=== PATIENT | male | born 1980 | race Native Hawaiian/Other Pacific Islander ===

== ENCOUNTER 2018-10-13 15:01 | Emergency (ER) | payer OTHER ==
[2018-10-13 15:12] VITALS: BP 115/72; PULSE 85; RESP 20; O2SAT 99
[2018-10-13] MEDS ORDERED: Dexamethasone 10 MG in Sodium Chloride 0.9% 50 ML IV ONE (16:13)
[2018-10-13] MEDS ORDERED: Sodium Chloride 0.9% 1,000 ML IV SCH (16:15)
--- NOTE | 2018-10-13 16:49 | ED PDOC ---
HPI: CCC, URI, Sore Throat Time Seen by Provider: 10/13/18 15:38 Chief Complaint (Nursing): ENT Problem Chief Complaint (Provider): Throat pain History/Exam Limitations: no limitations Onset/Duration Of Symptoms: Days (1) Current Symptoms Are (Timing): Still Present Location Of Pain: Throat, Diffuse Myalgias, Headache Sick Contacts (Context): None Associated Symptoms: Fever (tactile), Chills, Sore Throat, Myalgias. denies: Neck Pain, Nausea, Vomiting, Diarrhea Ear Symptoms: Bilateral: None Additional History Per: Patient Additional Complaint(s): 38yo male, no past medical history, comes to ER reporting fever, chills, and throat pain since yesterday. Patient states he began having tactile fevers since yesterday evening as well as sore throat, night sweats and chills. Patient states this morning he woke up with worsening throat pain and has only been able to tolerate small amounts of liquid; patient reports difficulty swallowing due to the pain. He otherwise denies nausea, vomiting, diarrhea, ear pain, or known sick contacts. He has not received the flu shot this season. Patient took Advil yesterday evening, with minimal relief. He additionally complains of low back pain since yesterday; he denies any lower extremity weakness, numbness, tingling, gait issues, or neck pain. PMD: None Past Medical History Reviewed: Historical Data, Nursing Documentation, Vital Signs Vital Signs: Last Vital Signs Temp 100.5 F H 10/13/18 15:10 Pulse 85 10/13/18 15:10 Resp 20 10/13/18 15:10 BP 115/72 10/13/18 15:10 Pulse Ox 99 10/13/18 15:10 - Medical History PMH: No Chronic Diseases - Surgical History Surgical History: No Surg Hx - Family History Family History: States: No Known Family Hx - Home Medications Home Medications: Ambulatory Orders Medication Instructions Recorded Acetaminophen [Tylenol 325mg tab] 650 mg PO Q6 PRN 7 Days tab 10/13/18 Ibuprofen [Motrin Tab] 600 mg PO Q6 PRN 7 Days tab 10/13/18 - Allergies Allergies/Adverse Reactions: Allergies Allergy/AdvReac Type Severity Reaction Status Date / Time No Known Allergies Allergy Verified 10/13/18 15:10 Review of Systems ROS Statement: Except As Marked, All Systems Reviewed And Found Negative Constitutional: Positive for: Fever, Chills, Sweats, Malaise ENT: Positive for: Throat Pain Cardiovascular: Negative for: Chest Pain Respiratory: Negative for: Shortness of Breath Gastrointestinal: Negative for: Nausea, Vomiting Musculoskeletal: Positive for: Back Pain Neurological: Negative for: Weakness, Numbness Physical Exam - Reviewed Nursing Documentation Reviewed: Yes Vital Signs Reviewed: Yes - Physical Exam Appears: Positive for: Non-toxic, Uncomfortable Head Exam: Positive for: ATRAUMATIC, NORMAL INSPECTION, NORMOCEPHALIC Skin: Positive for: Normal Color Eye Exam: Positive for: EOMI, PERRL, Conjunctival injection (mild injection bilaterally) ENT: Positive for: TM Is/Are (clear bilaterally; right ear canal with area of erythema and crusting), Pharyngeal Erythema, Tonsillar Exudate (bilaterally), Tonsillar Swelling (bilaterally) Neck: Positive for: Normal, Painless ROM, Supple Cardiovascular/Chest: Positive for: Regular Rate, Rhythm Respiratory: Positive for: Normal Breath Sounds. Negative for: Wheezing Back: Positive for: Decreased ROM (decreased ROM with flexion of back; of note, patient experienced dizziness when returning to standing position after back exam.), Other (paralumbar tenderness bilaterally). Negative for: L CVA Tenderness, R CVA Tenderness, Vertebral Tenderness Extremity: Positive for: Normal ROM (FROM bilateral hips, knees and feet.). Neg ative for: Deformity Neurologic/Psych: Positive for: Alert, Oriented, Gait (steady). Negative for: Motor/Sensory Deficits - ECG O2 Sat by Pulse Oximetry: 99 (RA) Pulse Ox Interpretation: Normal Medical Decision Making Medical Decision Making: Impression: 38yo male with throat pain, generalized myalgias Plan: -- Rapid flu -- Rapid strep -- Cole antigen -- IV Fluids -- Decadron 10mg IVP -- Motrin 600mg PO 171 Cole assay negative. 172 Patient negative for influenza. Rapid strep positive. Patient given IM Bicillin. 1999 On reassessment, patient reports marked improvement in symptoms. Fever defervesced and symptoms improved. Patient stable for discharge home; instructed to take medications as prescribed and return instructions given. Scribe Attestation: Documented by Tess Hirsch acting as a scribe for JALEN Kellogg Provider Attestation: All medical record entries made by the Scribe were at my direction and personally dictated by me. I have reviewed the chart and agree that the record accurately reflects my personal performance of the history, physical exam, medical decision making, and the department course for this patient. I have also personally directed, reviewed, and agree with the discharge instructions and disposition. Disposition - Clinical Impression Clinical Impression: Strep pharyngitis - Patient ED Disposition Is Patient to be Admitted: No Counseled Patient/Family Regarding: Studies Performed, Diagnosis, Need For Followup, Rx Given - Disposition Referrals: [facility] [Outside] Disposition: Routine/Home Disposition Time: 20:35 Condition: STABLE Additional Instructions: You were given a shot of Penicillin in the ER and do not require any further antibiotics to go home. Return to ER if you are unable to swallow any fluids or if you develop persistent fevers. F/u with primary care doctor for routine medical care. Take Tylenol or Ibuprofen for fevers and throat pain. Prescriptions: Acetaminophen [Tylenol 325mg tab] 650 mg PO Q6 PRN 7 Days tab PRN Reason: Pain, Moderate (4-7) Ibuprofen [Motrin Tab] 600 mg PO Q6 PRN 7 Days tab PRN Reason: Pain, Moderate (4-7) Instructions: Strep Throat (DC) Forms: [employer] (Croatian) Print Language: ARMENIAN
[2018-10-13] MEDS ORDERED: Penicillin G Benzathine 1.2 Mill Unit/2 ml Syr IM ONE (17:21)
[2018-10-13 20:26] VITALS: TEMP 98
== END 2018-10-13 21:15 | disposition home or self-care (01) ==
LOC: H.ER 15:01
DX: J02.0 Streptococcal pharyngitis (principal)
CPT/HCPCS: 82948; 86308; 87430; 87804; 96372; 96374; 99283; J0561; J1100; J7030

== ENCOUNTER 2019-01-04 17:29 | Emergency (ER) | payer OTHER ==
[2019-01-04 17:59] VITALS: RESP 18; O2SAT 99
[2019-01-04 19:00] VITALS: BP 126/66; PULSE 60; TEMP 97.3
--- NOTE | 2019-01-04 19:50 | ED PDOC ---
Lower Extremity Pain/Injury Time Seen by Provider: 01/04/19 18:02 Chief Complaint (Nursing): Abnormal Skin Integrity Chief Complaint (Provider): Abnormal Skin Integrity History Per: Patient History/Exam Limitations: no limitations Onset/Duration Of Symptoms: Days (x 7) Current Symptoms Are (Timing): Still Present Additional Complaint(s): 38 year old male presents to the ED for evaluation of irritation to the skin between fourth and fifth toes for about one week. Patient denies pain and states that he wanted to have it evaluated while he was in the ED with his son. He also reports a lesion on his left leg ongoing for a while that has become itchy in the last few days. Offers no other complaints. PMD: none provided Past Medical History Reviewed: Historical Data, Nursing Documentation, Vital Signs Vital Signs: Last Vital Signs Temp 97.3 F L 01/04/19 18:58 Pulse 60 01/04/19 18:58 Resp 18 01/04/19 18:58 BP 126/66 01/04/19 18:58 Pulse Ox 99 01/04/19 18:58 - Medical History PMH: No Chronic Diseases - Surgical History Surgical History: No Surg Hx - Family History Family History: States: Unknown Family Hx - Immunization History Hx Tetanus Toxoid Vaccination: No Hx Influenza Vaccination: No Hx Pneumococcal Vaccination: No - Home Medications Home Medications: Ambulatory Orders Medication Instructions Recorded Acetaminophen [Tylenol 325mg tab] 650 mg PO Q6 PRN 7 Days tab 10/13/18 Ibuprofen [Motrin Tab] 600 mg PO Q6 PRN 7 Days tab 10/13/18 Clotrimazole 1% Cream [Lotrimin 1% 15 applic EXT TID #1 tube 01/04/19 CREAM] - Allergies Allergies/Adverse Reactions: Allergies Allergy/AdvReac Type Severity Reaction Status Date / Time No Known Allergies Allergy Verified 01/04/19 17:59 Review of Systems ROS Statement: Except As Marked, All Systems Reviewed And Found Negative Skin: Positive for: Other (skin irriation and lesion on left leg) Physical Exam - Reviewed Nursing Documentation Reviewed: Yes Vital Signs Reviewed: Yes - Physical Exam Appears: Positive for: Non-toxic, No Acute Distress Head Exam: Positive for: ATRAUMATIC, NORMAL INSPECTION, NORMOCEPHALIC Skin: Positive for: Normal Color (macerated skin in the 4th and 5th interdigital pace with no surrounding erythema, induration or fluctuance), Warm, Dry Eye Exam: Positive for: Normal appearance, EOMI, PERRL Cardiovascular/Chest: Positive for: Regular Rate, Rhythm. Negative for: Murmur Respiratory: Positive for: CNT, Normal Breath Sounds Extremity: Positive for: Normal ROM, Other (3 cm raised circular area with peripheral scaling on anterior aspect of left lower extremity) Neurological/Psych: Positive for: Awake, Alert, Normal Tone - ECG O2 Sat by Pulse Oximetry: 99 (RA) Pulse Ox Interpretation: Normal - Progress ED Course And Treament: leg exam agove; consider fungal. Patient given ointment that he will use for both. Medical Decision Making Medical Decision Makin:00 Impression: tinea pedis Patient was given ointment to apply to both areas. He was advised to return to [facility] ED if he develops erythema, induration, swelling or fluctuance of any kind. He is stable for discharge home. Scribe Attestation: Documented by Laverne Tejada, acting as a scribe for Latha Antonio PA-C. Provider Scribe Attestation: All medical record entries made by the Scribe were at my direction and personally dictated by me. I have reviewed the chart and agree that the record accurately reflects my personal performance of the history, physical exam, medical decision making, and the department course for this patient. I have also personally directed, reviewed, and agree with the discharge instructions and disposition. Disposition - Clinical Impression Clinical Impression: Tinea pedis, left - Patient ED Disposition Is Patient to be Admitted: No - Disposition Referrals: Maciel Cristina MD [Staff Provider] - Disposition Time: 19:25 Condition: STABLE Prescriptions: Clotrimazole 1% Cream [Lotrimin 1% CREAM] 15 applic EXT TID #1 tube Instructions: Athlete's Foot (DC) Forms: [employer] (Bolivian)
== END 2019-01-04 18:58 | disposition home or self-care (01) ==
LOC: H.ER 17:29
DX: B35.3 Tinea pedis (principal)